=== PATIENT | male | born 1965 | race African-American/Black ===

== ENCOUNTER 2019-03-15 09:52 | Outpatient (CLI) | payer OTHER ==
--- NOTE | 2019-03-15 10:59 | XRay Report ---
XRAY LEFT KNEE 3 VIEWS: 03/15/19 09:52:00 CLINICAL: Pain. FINDINGS: Moderately severe osteoarthritis with narrowing of the medial joint space and large medial and lateral osteophytes. Moderate patellofemoral osteoarthritis. The patella is also higher than normal on the lateral view. Suspect a moderate size joint effusion. The soft tissues are otherwise normal. IMPRESSION: Osteoarthritis and possible patellar dislocation.
== END 2019-03-15 09:53 | disposition home or self-care (01) ==
LOC: XRAY 09:52
PROVIDERS: ATTEND Internal Medicine
DX: M17.12 Unilateral primary osteoarthritis, left knee (principal)